=== PATIENT | female | born 1995 | race African-American/Black ===

== ENCOUNTER 2017-03-15 20:32 | Emergency (ER) | payer MEDICAID ==
[~2017-03-15] VITALS: Ht 157.5 cm; Wt 50.9 kg
[~2017-03-15 20:32] MED LIST: PROZ10 PO
[2017-03-15 21:16] VITALS: BP 137/93
[2017-03-15 21:58] LABS: APPEARANCE,URINE CLOUDY (CLEAR); GLUCOSE, URINE (UA) NEGATIVE (NEGATIVE); KETONES,URINE TRACE mg/dL (NEGATIVE); LEUKOCYTE ESTERASE ,URINE NEGATIVE (NEGATIVE); OCCULT BLOOD,URINE NEGATIVE (NEGATIVE); PH,URINE 6.5 (5.0-8.0); PROTEIN,URINE NEGATIVE (NEGATIVE)
[2017-03-15 22:08] LABS: ADD UA MICROSCOPIC NO
== END 2017-03-15 22:51 | disposition left against medical advice (07) ==
LOC: EMS 20:33
DX: R10.9 Unspecified abdominal pain (principal); F15.90 Other stimulant use, unspecified, uncomplicated; Z53.21 Procedure and treatment not carried out due to patient leaving prior to being seen by health care provider

== ENCOUNTER 2017-05-13 11:38 | Inpatient (IN) | payer MEDICAID ==
[~2017-05-13] VITALS: Ht 162.6 cm; Wt 51.0 kg
[2017-05-13 13:15] VITALS: BP 108/63
[2017-05-13] MEDS ORDERED: ZOLPIDEM TARTRATE 10 MG TABLET PO PRN (13:30)
[2017-05-13] MEDS ORDERED: LORazepam 2 MG TABLET PO PRN (13:30)
[2017-05-13 15:24] VITALS: BP 105/71
[2017-05-13 16:25] VITALS: BP 104/71
[2017-05-13 17:02] LABS: GLUCOSE,POINT OF CARE 99 MG/DL (70-110)
[2017-05-13] MEDS: FLUoxetine HCL 10 MG CAPSULE PO SCH (21:43)
[2017-05-14 00:53] VITALS: BP 107/65
[2017-05-14 08:09] LABS: BASOPHILS % (AUTO) 0.3 % (0.0-2.0); EOSINOPHILS % (AUTO) 2.7 % (1.0-6.0); HEMATOCRIT 36.4 % (36-46); HEMOGLOBIN 12.2 g/dL (12.0-16.0); LYMPHOCYTES % (AUTO) 45.3 % (22.0-44.0); MEAN CORPUSCULAR HEMOGLOBIN 30.8 pg (26.0-34.0); MEAN CORPUSCULAR HGB CONC 33.4 G/dL (31.0-37.0); MEAN CORPUSCULAR VOLUME 92 fL (80-100); MONOCYTES # (AUTO) 0.6 K/uL (0.1-1.0); MONOCYTES % (AUTO) 8.5 % (2.0-9.0); NEUTROPHILS # (AUTO) 2.9 K/uL (1.8-7.7); NEUTROPHILS % (AUTO) 43.2 % (40.0-70.0); PLATELET COUNT (AUTO) 259 K/uL (150-450); RED BLOOD CELL COUNT(AUTO) 3.96 MIL/uL (4.00-5.20); WHITE BLOOD COUNT (AUTO) 6.7 K/uL (4.5-11.0)
[2017-05-14 08:41] LABS: ALANINE AMINOTRANSFERASE 10 U/L (12-78); ALBUMIN 3.7 g/dL (3.4-5.0); ANION GAP 11 mmol/L (8-16); ASPARTATE AMINOTRANSFERASE 12 U/L (15-37); BILIRUBIN,TOTAL 0.3 mg/dL (0.1-1.0); CALCIUM, TOTAL 8.6 mg/dL (8.8-10.5); CARBON DIOXIDE 25 mmol/L (22-29); CHLORIDE 107 mmol/L (98-107); GLOMERULAR FILTR. RATE CALC > 60 mL/min (>60); SODIUM SERUM 143 mmol/L (136-145); TOTAL PROTEIN, SERUM 7.3 g/dL (6.4-8.2); UREA NITROGEN, BLOOD 10 mg/dL (7-18)
[2017-05-14 08:50] VITALS: BP 109/61
[2017-05-14] MEDS: FLUoxetine HCL 10 MG CAPSULE PO SCH (09:01)
[2017-05-14 16:21] VITALS: BP 114/68
[2017-05-15 02:26] VITALS: BP 98/65
[2017-05-15 08:52] VITALS: BP 110/69
[2017-05-15] MEDS: FLUoxetine HCL 10 MG CAPSULE PO SCH (08:58)
[2017-05-15 16:00] VITALS: BP 114/68
[2017-05-16 06:42] VITALS: BP 100/65
[2017-05-16] MEDS: FLUoxetine HCL 10 MG CAPSULE PO SCH (08:44)
[2017-05-16 09:15] VITALS: BP 103/57
[2017-05-16 16:00] VITALS: BP 114/66
[2017-05-17 07:01] VITALS: BP 101/60
[2017-05-17] MEDS: FLUoxetine HCL 10 MG CAPSULE PO SCH (08:24)
[2017-05-17 09:21] VITALS: BP 131/68
== END 2017-05-17 14:27 | disposition home or self-care (01) | DRG 751 ==
LOC: B2S 14:14 → EDSTATUS 15:01 → B2S 19:26
DX: F33.3 Major depressive disorder, recurrent, severe with psychotic symptoms (principal); R45.851 Suicidal ideations; F15.90 Other stimulant use, unspecified, uncomplicated; Z91.013 Allergy to seafood; F10.10 Alcohol abuse, uncomplicated
CPT/HCPCS: 82962